=== PATIENT | male | born 1980 | race Caucasian/White ===

== ENCOUNTER 2016-11-26 18:03 | Emergency (ER) | payer OTHER ==
--- NOTE | 2016-11-26 21:28 | ED ---
GI/ HPI - HPI Summary HPI Summary: 36 male presents with complaints of experiencing blood in sperm with ejaculation last night after sex. Patient states it was a "significant amount, streaking". This has never happened to him before. Denies pain, urinary symptoms , and external genitalia symptoms. Has had children before. Denies swelling, urethral discharge, abdominal pain, back pain fever/chills, redness. No other complaints otherwise. No PMHx and no new medications. Not on blood thinners. No recent stress. Does not work out strenuously. Denies reproductive surgery/ vasectomy. - History of Current Complaint Chief Complaint: EDUrogenitalProblems Time Seen by Provider: 11/26/16 18:27 Stated Complaint: REQUESTED STD TESTING Hx Obtained From: Patient Onset/Duration: Started Days Ago - last night x 1 Current Severity: None Vaginal Bleeding Description: Bright Red Pain Intensity: 0 Location of Pain: None Pain Characteristics: Other: - blood in semen Associated Signs and Symptoms: Positive: Negative PMH/Surg Hx/FS Hx/Imm Hx Endocrine/Hematology History: Denies: Hx Anticoagulant Therapy, Hx Diabetes, Hx Anemia, Other Endocrine/ Hematological Disorders Cardiovascular History: Denies: Hx Hypertension Respiratory History: Denies: Hx Asthma - Surgical History Surgery Procedure, Year, and Place: n/a - Immunization History Immunizations Up to Date: Yes Infectious Disease History: No Infectious Disease History: Denies: Traveled Outside the [place] in Last 30 Days - Family History Known Family History: Positive: None - Social History Alcohol Use: Occasionally Substance Use Type: Reports: None Smoking Status (MU): Unknown if Ever Smoked Review of Systems Constitutional: Negative Cardiovascular: Negative Respiratory: Negative Positive: see HPI, other - blood in semen Musculoskeletal: Negative Skin: Negative All Other Systems Reviewed And Are Negative: Yes Physical Exam Triage Information Reviewed: Yes Vital Signs On Initial Exam: Initial Vitals Temp Pulse Resp BP Pulse Ox 97.8 F 79 20 144/89 100 11/26/16 18:11 11/26/16 18:11 11/26/16 18:11 11/26/16 18:11 11/26/16 18:11 Vital Signs Reviewed: Yes Appearance: Positive: Well-Appearing, No Pain Distress, Well-Nourished Skin: Positive: Warm, Skin Color Reflects Adequate Perfusion, Dry. Negative: Cold, Cyanosis @, Pale, Erythema @ Head/Face: Positive: Normal Head/Face Inspection Eyes: Positive: Conjunctiva Clear ENT: Positive: Hearing grossly normal Neck: Positive: Supple, Nontender Respiratory/Lung Sounds: Positive: Clear to Auscultation, Breath Sounds Present. Negative: Rales, Rhonchi, Wheezes Cardiovascular: Positive: Normal, RRR, Pulses are Symmetrical in both Upper and Lower Extremities. Negative: Murmur, Rub Abdomen Description: Positive: Nontender, No Organomegaly, Soft. Negative: Bruit, CVA Tenderness (R), CVA Tenderness (L), Distended, Guarding, Hernia @, McBurney's Point Tenderness, Peritoneal Signs, Pulsatile Mass Bowel Sounds: Positive: Present Male Genital Exam: Positive: normal genitalia - per patient deferred exam due to denying an abnormal lumbs, tendnerss, erythema. Negative: scrotum tenderness (R), scrotum tenderness (L), testicular tenderness (R), testicular tenderness (L), urethral discharge Musculoskeletal: Positive: Normal, Strength/ROM Intact Neurological: Positive: Normal, Sensory/Motor Intact, Alert, Oriented to Person Place, Time Psychiatric: Positive: Affect/Mood Appropriate Diagnostics - Vital Signs Vital Signs Temp Pulse Resp BP Pulse Ox 11/26/16 20:18 97.8 F 79 20 144/89 100 11/26/16 18:11 97.8 F 79 20 144/89 100 - Laboratory Result Diagrams: 11/26/16 21:37 11/26/16 21:37 Lab Statement: Any lab studies that have been ordered have been reviewed, and results considered in the medical decision making process. GIGU Course/Dx - Course Course Of Treatment: urinalysis obtained for STD testing and check urine. basic labs cbc, cmp and ptt obtained to rule out kidney etiology. all unremarkable, besides slightly elevated glucose, patient did just drink soda prior to lab work. normal PE findings. no emergent etiologies at this time. no concern for testicular torsion, infection, prostatitis, or epididymitis. will follow up with urologist. patient did not want genitalia examined as he had no external concern and no pain. no concern for STD at this time due to no symptoms/ discharge. will wait for results before treatment. aware of worsening signs and symptoms to be aware of and return if occur. - Diagnoses Differential Diagnoses - Male: Epididymitis, Prostatitis, STD, Ureteral Calculi , Urinary Tract Infection Provider Diagnoses: Hematospermia - Physician Notifications Discussed Care Of Patient With: Dr Telles Discharge - Discharge Plan Condition: Stable Disposition: HOME Referrals: Bennie MARINO,Man Flores [Primary Care Provider] - Gurpreet Gonzalez MD [Medical Doctor] - Additional Instructions: Please call and make an appointment with urologist for further evaluation and work up. Drink plenty of fluids. If you develop new or worsening symptoms, as discussed, please seek medical attention promptly.
[2016-11-26 21:39] LABS: Urine Bilirubin Negative (Negative); Urine Glucose Negative (Negative); Urine Nitrite Negative (Negative)
[2016-11-26 21:44] LABS: Hematocrit 48 % (42-52); Hemoglobin 16.4 g/dl (14.0-18.0); Mean Corpuscular HGB Conc 35 g/dl (31-36); Mean Corpuscular Hemoglobin 31 pg (27-31); Mean Corpuscular Volume 89 fL (80-94); Mean Platelet Volume 8 um3 (7.4-10.4); Red Blood Count 5.38 10^6/ul (4.0-5.4); Red Cell Distribution Width 13 % (10.5-15); White Blood Count 9.9 10^3/ul (3.5-10.8)
[2016-11-26 21:58] LABS: Albumin 4.3 g/dL (3.2-5.2); BUN/Creatinine Ratio 16.2 (8-20); Calcium 9.5 mg/dL (8.6-10.3); EGFR Non-African American 75.4 (>60); Globulin 3.4 g/dL (2-4); Potassium 3.8 mmol/L (3.5-5.0); Total Bilirubin 0.4 mg/dL (0.2-1.0); Total Protein 7.7 g/dL (6.4-8.9)
[2016-11-26 22:17] VITALS: BP 131/74
== END 2016-11-26 22:16 | disposition home or self-care (01) ==
LOC: ED 18:03
DX: R36.1 Hematospermia (principal)
CPT/HCPCS: 36415; 80053; 81003; 85025; 85730; 87491; 87591; 99282